=== PATIENT | male | born 1945 | race Caucasian/White ===

== ENCOUNTER 2019-02-02 05:34 | Inpatient (IN) | payer MEDICARE, OTHER ==
[2019-02-02] VITALS (18 sets, daily range): BP systolic 130–171; BP diastolic 73–101; PULSE 60–73; RESP 11–31; Ht 157.5 cm; Wt 73.0 kg
[~2019-02-02] VITALS: Ht 157.5 cm; Wt 73.0 kg
[2019-02-02] MEDS ORDERED: VERAPAMIL 5 MG INJ ONE (06:59)
[2019-02-02] MEDS ORDERED: IODIXANOL LOCM 100 ML BTL ONE (06:59)
[2019-02-02] MEDS ORDERED: LIDOCAINE 1% (MDV) 20 ML INJ ONE (06:59)
[2019-02-02] MEDS ORDERED: SOD CHLORIDE 0.9% 500 ML ONE (06:59)
[2019-02-02] MEDS ORDERED: FENTAnyl 50 MCG/ML VIAL ONE (06:59)
[2019-02-02] MEDS ORDERED: NITROGLYCERIN (IC) 100 MCG/ML INJ ONE (07:00)
[2019-02-02] MEDS ORDERED: HEPARIN 1000 UNITS/ML 10 ML INJ ONE (07:00)
[2019-02-02] MEDS ORDERED: MIDAZOLAM 1 MG/ML 2 ML INJ ONE (07:00)
[2019-02-02] MEDS ORDERED: ASPIRIN 325 MG TAB ONE (08:10)
[2019-02-02] MEDS ORDERED: SOD CHLORIDE 0.9% 1,000 ML IV SCH (08:31)
[2019-02-02] MEDS ORDERED: HEPARIN 25000 UNITS/250 ML 250 ML IV SCH (09:00)
[2019-02-02] MEDS ORDERED: HEPARIN 1000 UNITS/ML 10 ML INJ IV ONE (09:00)
[2019-02-02] MEDS ORDERED: HEPARIN 1000 UNITS/ML 10 ML INJ IV PRN (09:00)
[2019-02-02] MEDS ORDERED: METOPROLOL (XL) 50 MG TAB PO SCH (09:00)
[2019-02-02] MEDS ORDERED: CEFAZOLIN 2 GM/50 ML (PMX) 50 ML IVPB ONE (09:30)
[2019-02-02] MEDS ORDERED: ATORVASTATIN 80 MG TAB PO SCH (21:00)
[2019-02-03] VITALS (50 sets, daily range): BP systolic 75–151; BP diastolic 48–96; PULSE 67–114; RESP 12–27; TEMP 97.4–102
[2019-02-03] MEDS ORDERED: CEFAZOLIN 2 GM/50 ML (PMX) 50 ML IVPB SCH (06:00)
[2019-02-03] MEDS ORDERED: MIDAZOLAM 5 ML ONE (07:29)
[2019-02-03] MEDS ORDERED: PAPAVERINE 60 MG INJ ONE (07:32)
[2019-02-03] MEDS ORDERED: THROMBIN 5000 UNIT (RECOTHROM) VIAL ONE (07:32)
[2019-02-03] MEDS ORDERED: GELATIN SIZE 100 SPONGE ONE (07:32)
[2019-02-03] MEDS ORDERED: HEPARIN 1000 UNITS/ML 10 ML INJ ONE ×4 (07:33→09:05)
[2019-02-03] MEDS ORDERED: VANCOMYCIN 1 GM INJ ONE (07:34)
[2019-02-03] MEDS ORDERED: AMINOCAPROIC ACID 5 GM INJ ONE ×2 (08:03→08:20)
[2019-02-03] MEDS ORDERED: LIDOCAINE 100 MG SYRINGE ONE (08:03)
[2019-02-03] MEDS ORDERED: MAGNESIUM SULFATE (MG) 50% 10 ML INJ ONE (08:03)
[2019-02-03] MEDS ORDERED: ALBUMIN HUMAN 25% 100 ML ONE (08:03)
[2019-02-03] MEDS ORDERED: HYDROGEN PEROXIDE 118 ML ONE (08:03)
[2019-02-03] MEDS ORDERED: CA CHLORIDE 10% 10 ML SYRINGE ONE (08:03)
[2019-02-03] MEDS ORDERED: NA BICARBONATE 8.4% 50 ML SYG ONE (08:03)
[2019-02-03] MEDS ORDERED: MANNITOL 20% 500 ML ONE (08:03)
[2019-02-03] MEDS ORDERED: PHENYLephrine 10 MG INJ ONE (08:03)
[2019-02-03] MEDS ORDERED: NORepinephrine 4 MG INJ ONE (08:04)
[2019-02-03] MEDS ORDERED: POTASSIUM CHLORIDE 40 MEQ INJ ONE (08:04)
[2019-02-03] MEDS ORDERED: CEFAZOLIN 1 GM INJ ONE ×2 (08:20→11:00)
[2019-02-03] MEDS ORDERED: NORepinephrine 8MG/250 ML (PMX 250 ML IV ONE (09:00)
[2019-02-03] MEDS ORDERED: HEPARIN (10000 UNITS/ML) 10,000 UNIT, MILRINONE LACTATE 10 MG in SOD CHLORIDE 0.9% 1,00... SC ONE (09:00)
[2019-02-03] MEDS ORDERED: DOPamine-D5W 1.6 MG/ML 250 ML ONE (09:00)
[2019-02-03] MEDS ORDERED: INSULIN HUMAN REGULAR 100 UNIT in SOD CHLORIDE 0.9% 99 ML IVPB ONE (09:00)
[2019-02-03] MEDS ORDERED: MILRINONE LACTATE 2 MG in SOD CHLORIDE 0.9% 50 ML IV ONE (09:00)
[2019-02-03] MEDS ORDERED: ASPIRIN 600 MG SUPP PR ONE (09:00)
[2019-02-03] MEDS ORDERED: EPINEPHrine 4 MG in DEXTROSE 5% 246 ML IV ONE (09:00)
[2019-02-03] MEDS ORDERED: PHENYLephrine 20MG IN 250 ML 250 ML IV ONE (09:00)
[2019-02-03] MEDS ORDERED: NITROGLYCERIN 50 MG/D5W 250 ML BTL ONE (09:00)
[2019-02-03] MEDS ORDERED: ASPIRIN 325 MG TAB PO SCH (09:00)
[2019-02-03] MEDS ORDERED: PROTAMINE 250 MG INJ ONE (10:36)
[2019-02-03] MEDS ORDERED: ETOMIDATE 20 MG INJ ONE (10:59)
[2019-02-03] MEDS ORDERED: LIDOCAINE 2% (SDV) 5 ML INJ ONE (10:59)
[2019-02-03] MEDS ORDERED: ROCURONIUM 50 MG INJ ONE (10:59)
[2019-02-03] MEDS ORDERED: OXYCODONE/ACETAMINOPHEN (5/325) TAB PO PRN ×2 (11:30)
[2019-02-03] MEDS ORDERED: INSULIN HUMAN REGULAR 100 UNIT in SOD CHLORIDE 0.9% 99 ML IV SCH (11:30)
[2019-02-03] MEDS ORDERED: DOPamine-D5W 1.6 MG/ML 250 ML IV SCH ×2 (11:30→12:00)
[2019-02-03] MEDS ORDERED: ACETAMINOPHEN 325 MG TAB PO PRN (11:30)
[2019-02-03] MEDS ORDERED: DEXTROSE 50% 50 ML SYRINGE IV PRN ×2 (11:30)
[2019-02-03] MEDS ORDERED: NITROGLYCERIN 50 MG/D5W (PMX) 250 ML IV SCH ×2 (11:30→12:00)
[2019-02-03] MEDS: ACCU-CHEK XX SCH ×13 (11:41→23:17)
[2019-02-03] MEDS ORDERED: DIPHENHYDRAMINE 50 MG INJ IV PRN (12:00)
[2019-02-03] MEDS ORDERED: PHENYLephrine 20MG IN 250 ML 250 ML IV SCH (12:00)
[2019-02-03] MEDS ORDERED: ALBUMIN HUMAN 5% 250 ML IV PRN (12:00)
[2019-02-03] MEDS ORDERED: LORAZEPAM 2 MG INJ IV PRN (12:00)
[2019-02-03] MEDS ORDERED: ONDANSETRON 4 MG INJ IV PRN (12:00)
[2019-02-03] MEDS ORDERED: morphine 2 MG INJ IV PRN ×2 (12:00)
[2019-02-03] MEDS ORDERED: LEVALBUTEROL (NEB) 0.63 MG/3 ML AMP HHN PRN (12:00)
[2019-02-03] MEDS ORDERED: MEPERIDINE 25 MG INJ IV PRN (12:00)
[2019-02-03] MEDS: CEFAZOLIN 1 GM/50 ML (PMX) 50 ML IVPB SCH ×2 (13:54→20:30)
[2019-02-03] MEDS ORDERED: ALBUMIN HUMAN 5% 250 ML IV ONE ×2 (14:00→18:00)
[2019-02-03] MEDS: MAGNESIUM SULFATE 1 GM/D5W 100 ML IVPB PRN ×2 (14:04→15:28)
[2019-02-03] MEDS: POTASSIUM CHLORIDE 50 ML IVPB PRN ×5 (14:11→23:15)
[2019-02-03] MEDS: POTASSIUM CHLORIDE 40 MEQ, CALCIUM CHLORIDE 10% 1 GM in DEXTROSE 5%-0.225% NACL 1,000 ML IV SCH (14:21)
[2019-02-03] MEDS: KETOROLAC 15 MG INJ IV PRN (14:35)
[2019-02-03] MEDS: DEXMEDETOMIDINE IN DEXTROSE 5% 50 ML IV SCH ×3 (15:19→18:50)
[2019-02-03] MEDS: FAMOTIDINE 20 MG INJ IV SCH (16:28)
[2019-02-03] MEDS ORDERED: FAMOTIDINE 20 MG INJ ONE (16:28)
[2019-02-03] MEDS: ONDANSETRON 4 MG INJ IV PRN ×2 (17:27→23:41)
[2019-02-03] MEDS ORDERED: NORepinephrine 8MG/250 ML (PMX 250 ML ONE (17:56)
[2019-02-03] MEDS ORDERED: NORepinephrine 8MG/250 ML (PMX 250 ML IV SCH (18:00)
[2019-02-03] MEDS ORDERED: ACETAMINOPHEN 650 MG SUPP PR PRN (20:00)
[2019-02-03] MEDS: HYDROmorphONE 0.5 MG/0.5 ML SYG IV PRN ×2 (20:22→22:54)
[2019-02-03] MEDS ORDERED: FAMOTIDINE 20 MG TAB PO SCH (21:00)
[2019-02-04] VITALS (79 sets, daily range): BP systolic 62–184; BP diastolic 46–115; PULSE 73–118; RESP 10–42; TEMP 98.7–100.3
[2019-02-04] MEDS: ACCU-CHEK XX SCH ×15 (00:13→15:19)
[2019-02-04] MEDS ORDERED: FUROSEMIDE 20 MG INJ IV ONE (01:00)
[2019-02-04] MEDS: DEXMEDETOMIDINE IN DEXTROSE 5% 50 ML IV SCH (02:35)
[2019-02-04] MEDS: KETOROLAC 15 MG INJ IV PRN ×3 (03:09→18:11)
[2019-02-04] MEDS: POTASSIUM CHLORIDE 40 MEQ, CALCIUM CHLORIDE 10% 1 GM in DEXTROSE 5%-0.225% NACL 1,000 ML IV SCH (04:34)
[2019-02-04] MEDS: CEFAZOLIN 1 GM/50 ML (PMX) 50 ML IVPB SCH (04:34)
[2019-02-04] MEDS: HYDROmorphONE 0.5 MG/0.5 ML SYG IV PRN ×5 (06:47→23:55)
[2019-02-04] MEDS: FAMOTIDINE 20 MG INJ IV SCH ×2 (08:05→22:57)
[2019-02-04] MEDS: ENOXAPARIN 40 MG/0.4 ML SYG SC SCH (09:25)
[2019-02-04] MEDS ORDERED: KETOROLAC 30 MG INJ IV STA (09:38)
[2019-02-04] MEDS: ASPIRIN 325 MG TAB PO SCH (09:58)
[2019-02-04] MEDS ORDERED: FUROSEMIDE 40 MG INJ IV ONE ×3 (12:30→19:00)
[2019-02-04] MEDS: ATORVASTATIN 40 MG TAB PO SCH (22:57)
[2019-02-05] VITALS (30 sets, daily range): BP systolic 109–166; BP diastolic 69–97; PULSE 93–116; RESP 11–35
[2019-02-05] MEDS: KETOROLAC 15 MG INJ IV PRN (02:38)
[2019-02-05] MEDS: HYDROmorphONE 0.5 MG/0.5 ML SYG IV PRN ×2 (07:54→17:08)
[2019-02-05] MEDS: FAMOTIDINE 20 MG INJ IV SCH ×2 (07:54→20:19)
[2019-02-05] MEDS ORDERED: FUROSEMIDE 40 MG INJ IV ONE (09:00)
[2019-02-05] MEDS: NICOTINE (21 MG/24 HR) PATCH TRANSDERM SCH (09:24)
[2019-02-05] MEDS: ASPIRIN 325 MG TAB PO SCH (09:24)
[2019-02-05] MEDS: METOPROLOL (XL) 50 MG TAB PO SCH (09:25)
[2019-02-05] MEDS: ENOXAPARIN 40 MG/0.4 ML SYG SC SCH (09:27)
[2019-02-05] MEDS ORDERED: LACTULOSE 30ML CUP PO ONE (10:30)
[2019-02-05] MEDS ORDERED: METOCLOPRAMIDE 10 MG INJ IV PRN (17:30)
[2019-02-05] MEDS: DOCUSATE SODIUM 100 MG CAP PO SCH (20:19)
[2019-02-05] MEDS: ATORVASTATIN 40 MG TAB PO SCH (20:20)
[2019-02-05] MEDS: MELATONIN 3 MG TABLET PO SCH (22:41)
[2019-02-06] VITALS (24 sets, daily range): BP systolic 121–160; BP diastolic 70–95; PULSE 93–110; RESP 13–31
[2019-02-06] MEDS: CEFEPIME 1GM/50 ML (PMX) 50 ML IVPB SCH ×2 (08:16→20:50)
[2019-02-06] MEDS: FAMOTIDINE 20 MG INJ IV SCH ×2 (08:16→19:51)
[2019-02-06] MEDS: DOCUSATE SODIUM 100 MG CAP PO SCH ×2 (08:18→20:50)
[2019-02-06] MEDS: ASPIRIN 325 MG TAB PO SCH (08:18)
[2019-02-06] MEDS: NICOTINE (21 MG/24 HR) PATCH TRANSDERM SCH (08:18)
[2019-02-06] MEDS: METOPROLOL (XL) 50 MG TAB PO SCH (08:19)
[2019-02-06] MEDS: ENOXAPARIN 40 MG/0.4 ML SYG SC SCH (08:22)
[2019-02-06] MEDS ORDERED: NEUTRA-PHOS 250 MG PACKET PO ONE (08:30)
[2019-02-06] MEDS ORDERED: FUROSEMIDE 20 MG INJ IV ONE (14:00)
[2019-02-06] MEDS ORDERED: POTASSIUM CHLORIDE 20 MEQ POWDER FOR ORAL SOLN PO ONE (14:00)
[2019-02-06] MEDS: AMLODIPINE 5 MG TAB PO SCH (14:35)
[2019-02-06] MEDS: ATORVASTATIN 40 MG TAB PO SCH (20:50)
[2019-02-06] MEDS: MELATONIN 3 MG TABLET PO SCH (20:50)
[2019-02-07] VITALS (20 sets, daily range): BP systolic 114–152; BP diastolic 67–96; PULSE 86–102; RESP 14–28
[2019-02-07] MEDS: NICOTINE (21 MG/24 HR) PATCH TRANSDERM SCH (08:25)
[2019-02-07] MEDS: CEFEPIME 1GM/50 ML (PMX) 50 ML IVPB SCH ×2 (08:25→20:53)
[2019-02-07] MEDS: ASPIRIN 325 MG TAB PO SCH (08:25)
[2019-02-07] MEDS: DOCUSATE SODIUM 100 MG CAP PO SCH ×2 (08:26→20:53)
[2019-02-07] MEDS: METOPROLOL (XL) 50 MG TAB PO SCH (08:26)
[2019-02-07] MEDS: FAMOTIDINE 20 MG INJ IV SCH ×2 (08:26→20:53)
[2019-02-07] MEDS: AMLODIPINE 5 MG TAB PO SCH (08:26)
[2019-02-07] MEDS: ENOXAPARIN 40 MG/0.4 ML SYG SC SCH (08:29)
[2019-02-07] MEDS: ATORVASTATIN 40 MG TAB PO SCH (20:52)
[2019-02-07] MEDS: MELATONIN 3 MG TABLET PO SCH (20:52)
[2019-02-08] VITALS: BP 133/79; PULSE 91; RESP 18
[2019-02-08 04:40] VITALS: BP 149/69; PULSE 87; RESP 18
[2019-02-08] MEDS ORDERED: POTASSIUM CHLORIDE (SR) 20 MEQ TAB PO STA (07:26)
[2019-02-08 07:46] VITALS: BP 150/84; PULSE 91; RESP 20
[2019-02-08] MEDS: ASPIRIN 325 MG TAB PO SCH (08:48)
[2019-02-08] MEDS: CEFEPIME 1GM/50 ML (PMX) 50 ML IVPB SCH (08:48)
[2019-02-08] MEDS: DOCUSATE SODIUM 100 MG CAP PO SCH ×2 (08:49→20:42)
[2019-02-08] MEDS: FAMOTIDINE 20 MG INJ IV SCH ×2 (08:49→20:43)
[2019-02-08] MEDS: AMLODIPINE 5 MG TAB PO SCH ×2 (08:50→20:42)
[2019-02-08] MEDS: METOPROLOL (XL) 50 MG TAB PO SCH (08:50)
[2019-02-08] MEDS: NICOTINE (21 MG/24 HR) PATCH TRANSDERM SCH (08:51)
[2019-02-08] MEDS: ENOXAPARIN 40 MG/0.4 ML SYG SC SCH (09:06)
[2019-02-08 11:10] VITALS: BP 143/77; PULSE 94; RESP 19
[2019-02-08 15:11] VITALS: BP 110/71; PULSE 84; RESP 19
[2019-02-08 20:00] VITALS: BP 143/69; PULSE 90; RESP 20
[2019-02-08] MEDS: MELATONIN 3 MG TABLET PO SCH (20:42)
[2019-02-08] MEDS: ATORVASTATIN 40 MG TAB PO SCH (20:43)
[2019-02-09] VITALS: BP 147/71; PULSE 90; RESP 20
[2019-02-09 03:39] VITALS: BP 124/69; PULSE 90; RESP 20
[2019-02-09 07:15] VITALS: BP 141/69; PULSE 86; RESP 20
[2019-02-09] MEDS: METOPROLOL (XL) 50 MG TAB PO SCH (08:20)
[2019-02-09] MEDS: FAMOTIDINE 20 MG INJ IV SCH (08:20)
[2019-02-09] MEDS: DOCUSATE SODIUM 100 MG CAP PO SCH (08:20)
[2019-02-09] MEDS: ASPIRIN 325 MG TAB PO SCH (08:21)
[2019-02-09] MEDS: AMLODIPINE 5 MG TAB PO SCH (08:21)
[2019-02-09] MEDS: NICOTINE (21 MG/24 HR) PATCH TRANSDERM SCH (08:23)
[2019-02-09] MEDS: ENOXAPARIN 40 MG/0.4 ML SYG SC SCH (08:26)
[2019-02-09] MEDS ORDERED: POTASSIUM CHLORIDE 20 MEQ POWDER FOR ORAL SOLN PO ONE (11:00)
[2019-02-09 11:19] VITALS: BP 129/75; PULSE 83; RESP 20
[2019-02-09] MEDS ORDERED: FUROSEMIDE 20 MG INJ IV ONE (11:30)
[2019-02-09 15:20] VITALS: BP 116/64; PULSE 85; RESP 20
== END 2019-02-09 17:32 | DRG 233 ==
LOC: SDS 05:34 → ICU 08:37 → TEL 02-07 20:32
PROVIDERS: ADMIT Internal Medicine Interventional Cardiology; ATTEND Internal Medicine Interventional Cardiology
PROC: 4A023N7 Measurement of Cardiac Sampling and Pressure, Left Heart, Percutaneous Approach (ICD-10-PCS; 2019-02-02)
PROC: B211YZZ Fluoroscopy of Multiple Coronary Arteries using Other Contrast (ICD-10-PCS; 2019-02-02)
PROC: 021109W Bypass Coronary Artery, Two Arteries from Aorta with Autologous Venous Tissue, Open Approach (ICD-10-PCS; 2019-02-03)
PROC: 06BP4ZZ Excision of Right Saphenous Vein, Percutaneous Endoscopic Approach (ICD-10-PCS; 2019-02-03)
PROC: 02100Z9 Bypass Coronary Artery, One Artery from Left Internal Mammary, Open Approach (ICD-10-PCS; principal; 2019-02-03 07:30)
DX: I25.110 Atherosclerotic heart disease of native coronary artery with unstable angina pectoris (principal); I50.31 Acute diastolic (congestive) heart failure; I21.4 Non-ST elevation (NSTEMI) myocardial infarction; J96.01 Acute respiratory failure with hypoxia; J18.9 Pneumonia, unspecified organism; N17.9 Acute kidney failure, unspecified; J98.11 Atelectasis; T81.10XA Postprocedural shock unspecified, initial encounter; D64.9 Anemia, unspecified; E66.01 Morbid (severe) obesity due to excess calories; E78.5 Hyperlipidemia, unspecified; F17.200 Nicotine dependence, unspecified, uncomplicated; I11.0 Hypertensive heart disease with heart failure; I71.9 Aortic aneurysm of unspecified site, without rupture; I70.0 Atherosclerosis of aorta; J44.9 Chronic obstructive pulmonary disease, unspecified; K59.00 Constipation, unspecified; R14.0 Abdominal distension (gaseous); R53.81 Other malaise; R53.83 Other fatigue; Z68.29 Body mass index [BMI] 29.0-29.9, adult
CPT/HCPCS: 36600; 71045; 74018; 80048; 80053; 82803; 82962; 83735; 84100; 84132; 84145; 85025; 85610; 85730; 86850; 86900; 86901; 86920; 87081; 92526; 92610; 93005; 93306; 93312; 93325; 93458; 93880; 94002; 94003; 94660; 94770; 97116; 97163; 97530; J0171; J0690; J0692; J1170; J1265; J1644; J1650; J1815; J1885; J1940; J2001; J2250; J2260; J2370; J2405; J2440; J2720; J3010; J3370; J3475; J3480; J7030; J7040; J7070; P9045; P9047; Q9967

== ENCOUNTER 2019-02-09 17:50 | Inpatient (IN) | payer MEDICARE, OTHER ==
[~2019-02-09] VITALS: Ht 157.5 cm; Wt 73.0 kg
[2019-02-09] MEDS ORDERED: BISACODYL 10 MG SUPP PR PRN (18:30)
[2019-02-09] MEDS ORDERED: LACTULOSE 30ML CUP PO PRN (18:30)
[2019-02-09] MEDS ORDERED: PENDING SANTYL ORDER FOR WOUND CARE XX PRN (18:30)
[2019-02-09] MEDS ORDERED: MAGNESIUM HYDROXIDE 30ML CUP PO PRN (18:30)
[2019-02-09] MEDS ORDERED: ACETAMINOPHEN 325 MG TAB PO PRN (18:30)
[2019-02-09] MEDS ORDERED: METOCLOPRAMIDE 10 MG INJ IV PRN (19:00)
[2019-02-09] MEDS ORDERED: ONDANSETRON 4 MG INJ IV PRN (19:00)
[2019-02-09] MEDS ORDERED: OXYCODONE/ACETAMINOPHEN (5/325) TAB PO PRN ×2 (19:00)
[2019-02-09 19:43] VITALS: BP 135/77; PULSE 93; RESP 20
[2019-02-09] MEDS ORDERED: MAGNESIUM SULFATE 2 GM/50 ML 50 ML IVPB PRN (20:00)
[2019-02-09] MEDS: LEVALBUTEROL (NEB) 0.63 MG/3 ML AMP HHN SCH (20:22)
[2019-02-09] MEDS: SENNA TAB PO SCH (20:46)
[2019-02-09] MEDS: DOCUSATE SODIUM 100 MG CAP PO SCH (20:46)
[2019-02-09] MEDS: ATORVASTATIN 40 MG TAB PO SCH (20:46)
[2019-02-09] MEDS: MELATONIN 3 MG TABLET PO SCH (20:46)
[2019-02-09] MEDS: FAMOTIDINE 20 MG TAB PO SCH (20:46)
[2019-02-09] MEDS: AMLODIPINE 5 MG TAB PO SCH (20:47)
[2019-02-10] MEDS: LEVALBUTEROL (NEB) 0.63 MG/3 ML AMP HHN SCH ×6 (01:03→20:38)
[2019-02-10] MEDS: HYDROmorphONE 0.5 MG/0.5 ML SYG IV PRN ×2 (01:34→08:07)
[2019-02-10 02:36] VITALS: BP 116/66; PULSE 87; RESP 20
[2019-02-10 07:43] VITALS: BP 122/59; PULSE 98; RESP 18
[2019-02-10] MEDS: FAMOTIDINE 20 MG TAB PO SCH ×2 (08:07→21:05)
[2019-02-10] MEDS: AMLODIPINE 5 MG TAB PO SCH ×2 (08:09→21:06)
[2019-02-10] MEDS: DOCUSATE SODIUM 100 MG CAP PO SCH ×2 (08:09→21:05)
[2019-02-10] MEDS: NICOTINE (21 MG/24 HR) PATCH TRANSDERM SCH (08:54)
[2019-02-10] MEDS: METOPROLOL (XL) 50 MG TAB PO SCH (08:55)
[2019-02-10] MEDS: ASPIRIN 325 MG TAB PO SCH (08:55)
[2019-02-10] MEDS: ENOXAPARIN 40 MG/0.4 ML SYG SC SCH (08:56)
[2019-02-10 14:17] VITALS: BP 117/73; PULSE 85; RESP 18
[2019-02-10 20:36] VITALS: BP 120/75; PULSE 77; RESP 18
[2019-02-10] MEDS: SENNA TAB PO SCH (21:05)
[2019-02-10] MEDS: ATORVASTATIN 40 MG TAB PO SCH (21:05)
[2019-02-10] MEDS: MELATONIN 3 MG TABLET PO SCH (21:06)
[2019-02-11] MEDS: LEVALBUTEROL (NEB) 0.63 MG/3 ML AMP HHN SCH ×6 (00:48→20:29)
[2019-02-11 02:00] VITALS: BP_SYST 118; BP_SYST 123; BP_DIAS 68; BP_DIAS 72; PULSE 80; PULSE 85; RESP 18
[2019-02-11 07:00] VITALS: BP 170/87; PULSE 101; RESP 18
[2019-02-11] MEDS: DOCUSATE SODIUM 100 MG CAP PO SCH ×2 (09:03→21:26)
[2019-02-11] MEDS: METOPROLOL (XL) 50 MG TAB PO SCH (09:03)
[2019-02-11] MEDS: ASPIRIN 325 MG TAB PO SCH (09:04)
[2019-02-11] MEDS: FAMOTIDINE 20 MG TAB PO SCH ×2 (09:04→21:26)
[2019-02-11] MEDS: AMLODIPINE 5 MG TAB PO SCH ×2 (09:04→21:26)
[2019-02-11] MEDS: ENOXAPARIN 40 MG/0.4 ML SYG SC SCH (09:05)
[2019-02-11] MEDS: NICOTINE (21 MG/24 HR) PATCH TRANSDERM SCH (09:06)
[2019-02-11] MEDS: IBUPROFEN 800 MG TAB PO SCH ×3 (09:11→21:26)
[2019-02-11 14:00] VITALS: BP 151/50; PULSE 68; RESP 18
[2019-02-11 20:00] VITALS: BP 119/59; PULSE 80; RESP 18
[2019-02-11] MEDS: ATORVASTATIN 40 MG TAB PO SCH (21:25)
[2019-02-11] MEDS: SENNA TAB PO SCH (21:26)
[2019-02-11] MEDS: MELATONIN 3 MG TABLET PO SCH (21:26)
[2019-02-12] MEDS: LEVALBUTEROL (NEB) 0.63 MG/3 ML AMP HHN SCH ×3 (00:48→08:38)
[2019-02-12 07:30] VITALS: BP 143/77; PULSE 91; RESP 18
[2019-02-12] MEDS: FAMOTIDINE 20 MG TAB PO SCH (09:03)
[2019-02-12] MEDS: AMLODIPINE 5 MG TAB PO SCH (09:03)
[2019-02-12] MEDS: DOCUSATE SODIUM 100 MG CAP PO SCH (09:03)
[2019-02-12] MEDS: ASPIRIN 325 MG TAB PO SCH (09:04)
[2019-02-12] MEDS: NICOTINE (21 MG/24 HR) PATCH TRANSDERM SCH (09:04)
[2019-02-12] MEDS: IBUPROFEN 800 MG TAB PO SCH ×2 (09:04→12:45)
[2019-02-12] MEDS: METOPROLOL (XL) 50 MG TAB PO SCH (09:04)
[2019-02-12] MEDS: ENOXAPARIN 40 MG/0.4 ML SYG SC SCH (09:05)
[2019-02-12 14:00] VITALS: BP 129/78; PULSE 82; RESP 20
== END 2019-02-12 16:30 | disposition home health service (06) | DRG 91 ==
LOC: VRC 17:50
PROVIDERS: ADMIT Physical Medicine & Rehabilitation; ATTEND Internal Medicine
DX: G72.81 Critical illness myopathy (principal); J96.01 Acute respiratory failure with hypoxia; I50.31 Acute diastolic (congestive) heart failure; J18.9 Pneumonia, unspecified organism; N17.9 Acute kidney failure, unspecified; I25.10 Atherosclerotic heart disease of native coronary artery without angina pectoris; Z95.1 Presence of aortocoronary bypass graft; J44.9 Chronic obstructive pulmonary disease, unspecified; Z74.09 Other reduced mobility; R13.12 Dysphagia, oropharyngeal phase; E83.9 Disorder of mineral metabolism, unspecified; D64.9 Anemia, unspecified; Z87.891 Personal history of nicotine dependence; I11.0 Hypertensive heart disease with heart failure; I71.9 Aortic aneurysm of unspecified site, without rupture
CPT/HCPCS: 80053; 81001; 85025; 87081; 87086; 94640; 94664; 97116; 97162; 97167; 97530; 97535; J1170; J1650